=== PATIENT | male | born 1995 | race Hispanic/Latino ===

== ENCOUNTER 2018-02-28 00:28 | Emergency (ER) | payer SELFPAY ==
[2018-02-28] MEDS ORDERED: ASPIRIN 81 MG CHEWABLE TABLET ONE (01:14)
[2018-02-28] MEDS ORDERED: NA CHLORIDE 0.9% 1,000 ML ONE (01:15)
[2018-02-28 01:24] LABS: Absolute Lymphocytes (CBC) 1.5 K/uL (0.7-4.9); Absolute Monocytes 0.4 K/uL (0.1-1.3); Absolute Neutrophil 3.5 K/uL (1.8-8.0); Basophils % 0.4 % (0-1.3); Eosinophils % 4.3 % (0-4.4); Hematocrit 46.7 % (39.6-49.0); Lymphocytes % 26.6 % (15.3-44.8); MCH 30.8 pg (27.0-35.0); MCV 89.2 fL (80-100); MPV 8.6 fL (7.6-11.3); Monocytes % 7.5 % (3.3-12.3); RBC Red Blood Cell Count 5.23 M/uL (4.33-5.43)
[2018-02-28 01:29] LABS: Protime INR 1.14
[2018-02-28 01:43] LABS: ALT/SGPT 37 U/L (12-78); AST/SGOT 18 U/L (15-37); Albumin 4.4 g/dL (3.4-5.0); Alkaline Phosphatase 134 U/L (45-117); BUN Blood Urea Nitrogen 7 mg/dL (7-18); Bicarbonate 30 mmol/L (21-32); Bilirubin Direct 0.1 mg/dL (0-0.2); Bilirubin Total 0.3 mg/dL (0.2-1.0); Glucose Level 110 mg/dL (74-106); Magnesium 2.3 mg/dL (1.8-2.4); NT PRO-BNP 16 pg/mL (<125); Potassium 3.6 mmol/L (3.5-5.1); Protein, Total 8.3 g/dL (6.4-8.2); Sodium Level 142 mmol/L (136-145); Troponin (Emerg Dept Use Only) < 0.02 ng/mL (0.0-0.045)
--- NOTE | 2018-02-28 02:00 | ER ---
Nurse's Notes [facility] Name: Jordan Huggins Age: 22 yrs Sex: Male : 1995 Arrival Date: 02/28/2018 Time: 00:31 Bed 26 Private MD: Diagnosis: Other chest pain;Cocaine abuse Presentation: 02/28 00:46 Presenting complaint: Patient states: he had 2 episodes yesterday with chest pain, bb dizziness, and blurred vision lasting a few seconds. Transition of care: patient was not received from another setting of care. Onset of symptoms was February 27, 2018. Risk Assessment: Do you want to hurt yourself or someone else? Patient reports no desire to harm self or others. Initial Sepsis Screen: Does the patient meet any 2 criteria? No. Patient's initial sepsis screen is negative. Does the patient have a suspected source of infection? No. Patient's initial sepsis screen is negative. Care prior to arrival: None. 00:46 Method Of Arrival: Ambulatory bb 00:46 Acuity: YORDY 3 bb Historical: - Allergies: 00:48 No Known Allergies; bb - Home Meds: 00:48 None [Active]; bb - PMHx: 00:48 None; bb - PSHx: 00:48 None; bb - Immunization history:: Adult Immunizations up to date. - Social history:: Smoking status: Patient uses tobacco products, smokes one-half pack cigarettes per day, Patient uses alcohol, occasionally. Patient/guardian denies using street drugs. - Ebola Screening: : No symptoms or risks identified at this time. Screenin:03 Abuse screen: Denies threats or abuse. Denies injuries from another. Nutritional rv screening: No deficits noted. Tuberculosis screening: No symptoms or risk factors identified. Fall Risk None identified. Assessment: 01:02 General: Appears in no apparent distress. comfortable, Behavior is calm, cooperative. rv Pain: Pain does not radiate. Pain began suddenly. Neuro: Level of Consciousness is awake, alert, obeys commands, Oriented to person, place, time, situation. Cardiovascular: Capillary refill < 3 seconds Rhythm is regular. Respiratory: Airway is patent. GI: No signs and/or symptoms were reported involving the gastrointestinal system. : No signs and/or symptoms were reported regarding the genitourinary system. EENT: No signs and/or symptoms were reported regarding the EENT system. Derm: Skin is intact. Vital Signs: 00:48 BP 142 / 88; Pulse 82; Resp 16 S; Temp 98.8(O); Pulse Ox 97% on R/A; Weight 83.91 kg bb (R); Height 5 ft. 5 in. (165.10 cm) (R); Pain 5/10; 02:09 BP 139 / 98; Pulse 89; Resp 17; Pulse Ox 99% on R/A; rv 00:48 Body Mass Index 30.79 (83.91 kg, 165.10 cm) ED Course: 00:31 Patient arrived in ED. es 00:33 Masoud Alvarenga PA is PHCP. cp 00:33 Porfirio Sotelo MD is Attending Physician. cp 00:36 Sharmin hZou, LATONIA is Primary Nurse. kr2 00:47 Triage completed. bb 00:48 Arm band placed on Patient placed in an exam room, on a stretcher, on pulse oximetry. bb Family accompanied patient. 01:03 Patient has correct armband on for positive identification. Bed in low position. Call rv light in reach. Side rails up X 1. Adult w/ patient. lunchroom monitor on. Pulse ox on. NIBP on. 01:04 Inserted saline lock: 20 gauge in right antecubital area, using aseptic technique. rv Blood collected. Patient maintains SpO2 saturation greater than 95% on room air. 01:50 XRAY Chest (1 view) In Process Unspecified. EDMS 02:10 No provider procedures requiring assistance completed. IV discontinued, bleeding rv controlled, No redness/swelling at site. Pressure dressing applied. Administered Medications: 01:18 Drug: Aspirin Chewable Tablet 324 mg Route: PO; rv 01:18 Drug: NS 0.9% 1000 ml Route: IV; Rate: 1 bolus; Site: right antecubital; rv Outcome: 01:59 Discharge ordered by . cp 02:10 Discharged to home ambulatory. rv 02:10 Condition: good 02:10 Discharge instructions given to patient, Instructed on discharge instructions, follow up and referral plans. Demonstrated understanding of instructions, follow-up care. 02:10 Patient left the ED. rv Signatures: Dispatcher [employer] EDMS Génesis Farley Brenda, RN RN bb Masoud Alvarenga PA PA Sharmin Amor, RN RN kr2 Jordan Dawn, RN RN rv
--- NOTE | 2018-02-28 02:00 | EDPHYS ---
Physician Documentation [facility] Name: Jordan Huggins Age: 22 yrs Sex: Male : 1995 Arrival Date: 02/28/2018 Time: 00:31 Bed 26 Private MD: ED Physician Porfirio Sotelo HPI: 02/28 01:05 This 22 yrs old Male presents to ER via Ambulatory with complaints of Chest cp Pain, Blurred Vision, Weakness. 01:06 The patient or guardian reports chest pain that is located primarily in the anterior cp chest wall. The pain does not radiate. Associated signs and symptoms: Pertinent positives: headache, blurred vision, general weakness. Duration: The patient or guardian reports a single episode, improved. 01:06 Severity of pain: in the emergency department the pain has improved. cp 01:06 Patient admits to using cocaine this past Wednesday. cp Historical: - Allergies: 00:48 No Known Allergies; bb - Home Meds: 00:48 None [Active]; bb - PMHx: 00:48 None; bb - PSHx: 00:48 None; bb - Immunization history:: Adult Immunizations up to date. - Social history:: Smoking status: Patient uses tobacco products, smokes one-half pack cigarettes per day, Patient uses alcohol, occasionally. Patient/guardian denies using street drugs. - Ebola Screening: : No symptoms or risks identified at this time. ROS: 01:10 Constitutional: Negative for body aches, chills, fever, poor PO intake. cp 01:10 ENT: Negative for injury, pain, and discharge. cp 01:10 Eyes: Positive for blurry vision, Negative for discharge, pain, photophobia, redness, vision loss. 01:10 Cardiovascular: Positive for chest pain, Negative for edema, palpitations. 01:10 Respiratory: Negative for cough, shortness of breath, wheezing. 01:10 Abdomen/GI: Negative for abdominal pain, nausea, vomiting, and diarrhea. 01:10 Skin: Negative for cellulitis, rash. 01:10 Neuro: Positive for headache, general weakness, Negative for altered mental status, seizure activity, syncope, near syncope. 01:10 All other systems are negative. Exam: 01:15 Constitutional: The patient appears in no acute distress, alert, awake, cp non-diaphoretic, non-toxic, well developed, well nourished. 01:15 Head/Face: Normocephalic, atraumatic. Eyes: Pupils equal round and reactive to light, cp extra-ocular motions intact. Lids and lashes normal. Conjunctiva and sclera are non-icteric and not injected. Cornea within normal limits. Periorbital areas with no swelling, redness, or edema. ENT: Nares patent. No nasal discharge, no septal abnormalities noted. Tympanic membranes are normal and external auditory canals are clear. Oropharynx with no redness, swelling, or masses, exudates, or evidence of obstruction, uvula midline. Mucous membranes moist. Neck: Trachea midline, no thyromegaly or masses palpated, and no cervical lymphadenopathy. Supple, full range of motion without nuchal rigidity, or vertebral point tenderness. No Meningismus. Chest/axilla: Normal chest wall appearance and motion. Nontender with no deformity. No lesions are appreciated. Cardiovascular: Regular rate and rhythm with a normal S1 and S2. No gallops, murmurs, or rubs. Normal PMI, no JVD. No pulse deficits. Respiratory: Lungs have equal breath sounds bilaterally, clear to auscultation and percussion. No rales, rhonchi or wheezes noted. No increased work of breathing, no retractions or nasal flaring. Abdomen/GI: Soft, non-tender, with normal bowel sounds. No distension or tympany. No guarding or rebound. No evidence of tenderness throughout. Skin: Warm, dry with normal turgor. Normal color with no rashes, no lesions, and no evidence of cellulitis. Neuro: Awake and alert, GCS 15, oriented to person, place, time, and situation. Cranial nerves II-XII grossly intact. Motor strength 5/5 in all extremities. Sensory grossly intact. Cerebellar exam normal. Normal gait. Vital Signs: 00:48 BP 142 / 88; Pulse 82; Resp 16 S; Temp 98.8(O); Pulse Ox 97% on R/A; Weight 83.91 kg bb (R); Height 5 ft. 5 in. (165.10 cm) (R); Pain 5/10; 02:09 BP 139 / 98; Pulse 89; Resp 17; Pulse Ox 99% on R/A; rv 00:48 Body Mass Index 30.79 (83.91 kg, 165.10 cm) bb MDM: 00:33 Patient medically screened. cp 01:20 Differential diagnosis: acute myocardial infarction, acute pericarditis, cp costochondritis, myocarditis, pericarditis, pneumonia, pneumothorax, pulmonary embolus, unstable angina. 01:57 Data reviewed: vital signs, nurses notes, lab test result(s), EKG, radiologic studies, cp plain films. 01:57 Test interpretation: by ED physician or midlevel provider: ECG, plain radiologic cp studies. Counseling: I had a detailed discussion with the patient and/or guardian regarding: the historical points, exam findings, and any diagnostic results supporting the discharge/admit diagnosis, lab results, radiology results, to return to the emergency department if symptoms worsen or persist or if there are any questions or concerns that arise at home. Special discussion: Based on the patient's history, exam, and Dx evaluation, there is no indication for emergent intervention or inpatient Tx. It is understood by the patient/guardian that if the Sx's persist or worsen they need to return immediately for re-evaluation. 02/28 01:05 Order name: Basic Metabolic Panel; Complete Time: 01:49 cp 02/28 01:49 Interpretation: Normal except: GLUC 110. 02/28 01:05 Order name: CBC with Diff; Complete Time: :49 cp 02/28 01:05 Order name: LFT's; Complete Time: 01:49 cp 02/28 01:49 Interpretation: Normal except: ALK 134; TP 8.3; GLOB 3.9. cp 02/28 01:05 Order name: Magnesium; Complete Time: :49 cp 02/28 01:05 Order name: NT PRO-BNP; Complete Time: 01:49 cp 02/28 01:05 Order name: PT-INR; Complete Time: 01:49 cp 02/28 01:50 Interpretation: Abnormal: PT 13.5. 02/28 01:05 Order name: Troponin (emerg Dept Use Only); Complete Time: 01:49 cp 02/28 01:50 Interpretation: TROPED < 0.02; Reviewed. 02/28 01:05 Order name: XRAY Chest (1 view) cp 02/28 01:05 Order name: EKG; Complete Time: 01:06 02/28 01:05 Order name: Cardiac monitoring; Complete Time: 01:06 cp 02/28 01:05 Order name: EKG - Nurse/Tech; Complete Time: 01: cp 02/28 01:05 Order name: IV Saline Lock; Complete Time: : cp 02/28 01:05 Order name: Labs collected and sent; Complete Time: 01: cp 02/28 01:05 Order name: O2 Per Protocol; Complete Time: 01: cp 02/28 01:05 Order name: O2 Sat Monitoring; Complete Time: 01:06 cp Administered Medications: 01:18 Drug: Aspirin Chewable Tablet 324 mg Route: PO; rv 01:18 Drug: NS 0.9% 1000 ml Route: IV; Rate: 1 bolus; Site: right antecubital; rv Disposition: 06:57 Co-signature as Attending Physician, Porfirio Sotelo MD. rn Disposition: 02/28/18 01:59 Discharged to Home. Impression: Other chest pain, Cocaine abuse. - Condition is Stable. - Discharge Instructions: Nonspecific Chest Pain, Stimulant Use Disorder-Cocaine. - Medication Reconciliation Form, Thank You Letter, Antibiotic Education, Prescription Opioid Use form. - Follow up: Emergency Department; When: As needed; Reason: Worsening of condition. - Problem is new. - Symptoms have improved. Signatures: Dispatcher [employer] EDMS Judit Bullock RN RN bb Porfirio Sotelo MD MD rn Masoud Alvarenga PA PA cp Jordan Dawn RN RN rv Corrections: (The following items were deleted from the chart) 02:10 01:59 02/28/2018 01:59 Discharged to Home. Impression: Other chest pain; Cocaine abuse. rv Condition is Stable. Forms are Medication Reconciliation Form, Thank You Letter, Antibiotic Education, Prescription Opioid Use. Follow up: Emergency Department; When: As needed; Reason: Worsening of condition. Problem is new. Symptoms have improved. cp
--- NOTE | 2018-02-28 08:06 | EKG ---
Test Date: 2018-02-28 Test Time: 00:58:16 Machine Fur Cleaner: MEASUREMENT RESULTS: Intervals: Rate: 89 NE: 124 QRSD: 98 QT: 348 QTc: 423 [place]: P: 53 NE: 124 QRS: 64 T: 49 INTERPRETIVE STATEMENTS: Normal sinus rhythm Normal ECG No previous ECG available for comparison Electronically Signed On 02-28-18 08:05:43 CDT by Ashkan Butler
--- NOTE | 2018-02-28 08:21 | RAD REPORT ---
EXAM DESCRIPTION: RAD - Chest Single View - 02/28/2018 1:50 am CLINICAL HISTORY: Chest pain COMPARISON: None. TECHNIQUE: AP portable chest image was obtained 0143 hours . FINDINGS: Lungs are clear. Heart and vasculature are normal. No measurable pleural effusion and no p neumothorax. No gross bony abnormality seen. No acute aortic findings suspected. IMPRESSION: No acute cardiopulmonary process.
== END 2018-02-28 02:10 | disposition home or self-care (01) ==
LOC: ER 00:28
DX: R07.89 Other chest pain (principal); F14.10 Cocaine abuse, uncomplicated
CPT/HCPCS: 36415; 71045; 80048; 80076; 83735; 83880; 84484; 85025; 85610; 93005; 99285; J7030